=== PATIENT | female | born 1995 | race African-American/Black ===

== ENCOUNTER 2022-05-18 14:15 | Emergency (ER) | payer MEDICAID ==
[~2022-05-18] VITALS: Ht 154.9 cm; Wt 59.0 kg
[2022-05-18 14:21] VITALS: BP 139/50
== END 2022-05-18 18:00 | disposition left against medical advice (07) ==
LOC: ER 14:15
DX: Z53.21 Procedure and treatment not carried out due to patient leaving prior to being seen by health care provider (principal)